=== PATIENT | male | born 1980 | race Caucasian/White ===

== ENCOUNTER 2019-04-26 23:23 | Emergency (ER) | payer SELFPAY ==
[2019-04-26 23:31] VITALS: BP 157/106; PULSE 78; TEMP 98.4; BMI 39.1
[2019-04-26] MEDS ORDERED: AMOX TR/POT CLAV 875MG/125MG TABLETS (FP) PO ONE (23:58)
--- NOTE | 2019-04-27 00:02 | PDOC ---
History of Present Illness - General Chief Complaint: Pain, Acute Stated Complaint: BUMP TO RIGHT SIDE OF FACE Time Seen by Provider: 04/26/19 23:40 - History of Present Illness Initial Comments: 04/27/19 00:06 This 38-year-old male with no significant past medical history presents with painful swelling in front of his right ear. Patient had been treated by fishing game warden earlier today: He consulted him because of pain and redness of the conjunctiva of the right eye. Metallic foreign body was removed from the cornea by the fishing game warden. 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 Tonight, patient noted tender swelling in front of right ear. He was told by his girlfriend that the right side of his upper face also appeared to be swollen. Patient states that he does not have pain in the area without direct palpation of the swollen area. Patient denies fever/chills, ear or scalp pain, vision changes, headache. No significant past medical history No known allergies Patient does not currently have a general medical doctor Non-smoker/no daily alcohol or recreational drug use Past History - Past Medical History Allergies/Adverse Reactions: Allergies Allergy/AdvReac Type Severity Reaction Status Date / Time No Known Allergies Allergy Verified 04/26/19 23:25 Home Medications: Ambulatory Orders Amox-Tr/K Cl [Augmentin - 875Mg Tablet] 1 tab PO BID #10 tablet 04/26/19 COPD: No Other medical history: DENIES - Psycho Social/Smoking Cessation Hx Smoking History: Never smoked Have you smoked in the past 12 months: No Information on smoking cessation initiated: No Hx Alcohol Use: Yes Drug/Substance Use Hx: No Review of Systems - Review of Systems Able to Perform ROS?: Yes Comments:: 12 point review of systems is negative except for what is noted in the history of present illness *Physical Exam - Vital Signs Last Vital Signs Temp Pulse Resp BP Pulse Ox 98.4 F 78 15 157/106 H 98 04/26/19 23:26 04/26/19 23:26 04/26/19 23:26 04/26/19 23:26 04/26/19 23:26 - Physical Exam GENERAL: Adult male, alert and oriented x3, no acute distress HEAD: Normal with no signs of trauma. EYES: PERRLA, EOMI, sclera anicteric, right conjunctiva moderately erythematous ENT: Ears normal except for 1.5 cm moderately tender firm mass in front of right ear consistent with swollen preauricular lymph node, nares patent, oropharynx clear without exudates,masses. No trismus moist mucous membranes. Right preauricular/zygoma area mildly edematous, faintly erythematous NECK: Normal range of motion, supple without lymphadenopathy, JVD, or masses. NEUROLOGICAL: Cranial nerves II through XII grossly intact. Normal speech. No focal neurological deficits. Medical Decision Making - Medical Decision Making As noted above, this 38-year-old man presents with tender swelling in front of his right ear. The patient had foreign body removed from the R cornea by his fishing game warden earlier today. Exam as noted. Because patient has mild edema and faint erythema on the lateral aspect of his R upper face, patient will be treated for presumed early cellulitis with Augmentin 875/125 with first dose given here tonight in the ER. Patient will follow-up with his fishing game warden on Friday, April 28. He does not have a general medical doctor will be given referral information for Dr. Kahn. He should call the office in the a.m. to arrange follow-up appointment within the next 48 hours. If he has severe swelling/increase in pain or redness / develops fever in the interim, he should return to the ER Discharge - Discharge Information Problems reviewed: Yes Clinical Impression/Diagnosis: Cellulitis Qualifiers: Site of cellulitis: face Qualified Code(s): L03.211 - Cellulitis of face Condition: Stable Disposition: HOME - Additional Discharge Information Prescriptions: Amox-Tr/K Cl [Augmentin - 875Mg Tablet] 1 tab PO BID #10 tablet - Follow up/Referral Referrals: David Kahn MD [Staff Physician] - Call tomorrow - Patient Discharge Instructions Patient Printed Discharge Instructions: DI for Cellulitis -- Adult Additional Instructions: Augmentin 875/125 twice a day for 5 days (take with a meal) Follow-up with ([facility]) within 2 to 3 days (call office in a.m.) Use eyedrops as directed by fishing game warden and follow-up with the fishing game warden on Friday, 04/28 as scheduled Return to ER if you have more pain/swelling in your face or develop fever/chills - Post Discharge Activity
[2019-04-27] MEDS ORDERED: AMOX TR/POT CLAV 875MG/125MG TABLETS (FP) ONE (00:25)
== END 2019-04-27 00:30 | disposition home or self-care (01) ==
LOC: FER 23:23
DX: L03.211 Cellulitis of face (principal)
CPT/HCPCS: 99281-25

== ENCOUNTER 2022-02-03 14:48 | Emergency (ER) | payer OTHER ==
[2022-02-03 14:54] VITALS: BP 110/74; PULSE 100; RESP 18; TEMP 97.8; BMI 43.8
== END 2022-02-03 17:09 | disposition home or self-care (01) ==
LOC: JERFT 14:48 → JER 14:48 → JERFT 17:09
DX: S06.0X0A Concussion without loss of consciousness, initial encounter (principal); V49.40XA Driver injured in collision with unspecified motor vehicles in traffic accident, initial encounter
CPT/HCPCS: 70450-TC; 99284-25